=== PATIENT | male | born 1950 | race American Indian/Alaskan Native ===

== ENCOUNTER 2017-07-18 09:04 | Day surgery (SDC) | payer OTHER ==
[~2017-07-18] VITALS: Ht 180.3 cm; Wt 128.8 kg
[~2017-07-18 09:04] MED LIST: ACET325 PO; AMIT50; ASPI81CH PO; CYCL10 PO; DIAZ5 PO; DOCU100 PO; HYDACE5 PO; NAPR250 PO; NAPR550 PO; OXYACE5T; OXYC5 PO; Percocet 5-3251 EACH PO; RXHYDMOR2; RXNAPNA550 PO; RXOXYACE PO
== END 2017-07-18 10:33 | disposition home or self-care (01) ==
LOC: ORSCMMR 09:04
DX: Z12.11 Encounter for screening for malignant neoplasm of colon (principal); K63.5 Polyp of colon; D12.4 Benign neoplasm of descending colon; D12.3 Benign neoplasm of transverse colon; D12.2 Benign neoplasm of ascending colon; D12.5 Benign neoplasm of sigmoid colon; K64.8 Other hemorrhoids; Z80.0 Family history of malignant neoplasm of digestive organs; E66.9 Obesity, unspecified; Z68.39 Body mass index [BMI] 39.0-39.9, adult; Z79.82 Long term (current) use of aspirin; Z79.899 Other long term (current) drug therapy
CPT/HCPCS: 88305; J7120

== ENCOUNTER 2019-02-10 09:40 | Day surgery (SDC) | payer MEDICARE ==
--- NOTE | 2019-02-10 13:10 | NUR ---
DENIES HEADACHE/BACK PAIN. VERBALIZED UNDERSTANDING OF DISCHARGE INSTRUCTIONS. PT DISCHARGED WITH SPOUSE TO WAITING AREA.
[2019-05-01] MEDS ORDERED: Vistaril25 MG PO (13:17)
[2019-05-01] MEDS ORDERED: Prednisone20 MG PO (13:17)
[2019-05-01] MEDS ORDERED: Pepcid20 MG PO (13:17)
[2019-05-01] MEDS ORDERED: LORCET 5-325 M1 EACH PO (13:56)
[2019-05-01] MEDS ORDERED: Robaxin750 MG PO (13:56)
== END 2019-02-10 22:51 | disposition home or self-care (01) ==
LOC: RAD 09:40
DX: M48.062 Spinal stenosis, lumbar region with neurogenic claudication (principal); Z88.5 Allergy status to narcotic agent
CPT/HCPCS: 62304; 72132; Q9966

== ENCOUNTER → 2024-01-05 | Outpatient (CLI) | payer OTHER ==
[~2024-01-05] MED LIST changes: +LORCET 5-325 M1 EACH PO; +Pepcid20 MG PO; +Prednisone20 MG PO; +Robaxin750 MG PO; +Vistaril25 MG PO
[2024-01-05 15:34] LABS: BASOPHILS ABSOLUTE AUTO 0.04 K/mm3 (0.00-0.23); BASOPHILS PERCENT AUTO 0 % (0-2); EOSINOPHILS ABSOLUTE AUTO 0.04 K/mm3 (0.00-0.68); EOSINOPHILS PERCENT AUTO 0 % (0-6); Hematocrit 40.5 % (37.0-53.0); Hemoglobin 13.8 g/dL (13.5-17.5); IMMATURE GRAN ABSOLUTE AUTO 0.07 K/mm3 (0.00-0.10); IMMATURE GRAN PERCENT AUTO 1 % (0-1); LYMPHOCYTES ABSOLUTE AUTO 2.13 K/mm3 (0.84-5.20); LYMPHOCYTES PERCENT AUTO 19 % (21-46); MONOCYTES ABSOLUTE AUTO 0.95 K/mm3 (0.16-1.47); MONOCYTES PERCENT AUTO 8 % (4-13); Mean Corpuscular HGB 29.4 pg (26.0-34.0); Mean Corpuscular HGB Conc 34.1 g/dL (31.5-36.5); Mean Corpuscular Volume 86 fL (80-100); Mean Platelet Volume 10.3 fL (9.1-12.4); NEUTROPHILS ABSOLUTE AUTO 8.24 K/mm3 (1.96-9.15); NEUTROPHILS PERCENT AUTO 72 % (41-73); Platelet Count 235 K/mm3 (150-400); RDW Coefficient Variation 15.6 % (11.7-14.2); RDW Standard Deviation 48.6 fL (35.1-46.3); Red Blood Cell Count 4.69 M/mm3 (4.30-5.90); White Blood Cell Count 11.47 K/mm3 (4.00-11.30)
[2024-01-05 15:45] LABS: Albumin/Globulin Ratio 0.7 (0.8-1.8); Bilirubin, Total 0.5 mg/dL (0.1-1.0); Bun/Creatinine Ratio 12.6 (12.0-20.0); Calcium, Blood 8.6 mg/dL (8.5-10.1); Creatinine, Blood 2.23 mg/dL (0.60-1.20); Globulin, Blood 4.4 g/dL (2.2-4.0); Potassium, Blood 3.4 mmol/L (3.5-5.5); Total Protein, Blood 7.4 g/dL (6.4-8.2); Uric Acid, Blood 9.9 mg/dL (3.5-7.2)
== END | disposition home or self-care (01) ==
LOC: LAB 15:30 → LAB SHORT 15:30
PROVIDERS: Physician Assistant Medical
DX: M79.89 Other specified soft tissue disorders (principal)
CPT/HCPCS: 80053; 84550; 85025; 85379

== ENCOUNTER → 2024-05-04 | Outpatient (CLI) | payer OTHER | LOC: LAB 17:23 → LAB SHORT 17:23 | DX: M79.89 Other specified soft tissue disorders (principal) | CPT/HCPCS: 84550 ==